=== PATIENT | female | born 1985 | race Caucasian/White ===

== ENCOUNTER 2016-10-08 10:14 | Emergency (ER) | payer MEDICAID ==
--- NOTE | 2016-10-08 10:47 | EDM.PDOC ---
ED HPI ENT - General Chief Complaint: ENT Problem Stated Complaint: THROAT PAIN Time Seen by Provider: 10/08/16 10:43 Source of Information: Reports: Patient History Limitations: Reports: No limitations - History of Present Illness INITIAL COMMENTS - FREE TEXT/NARRATIVE: 31-year-old female presents the ED with sore throat for the last 3 days. Note she was exposed to her daughter with positive strep about a week ago. Chills associated nonproductive cough. States it's very painful to swallow. Associated low-grade fever and some chills. Still has her tonsils. Symptom Onset Date: 10/05/16 Timing/Duration: Reports: Day(s):, Gradual onset Severity: moderate Location: Reports: throat Quality: Reports: Burning, Sharp, Stabbing Improves with: Reports: Medication (Motrin and Aleve have been helping.) Worsens with: Reports: Other (98) Associated Symptoms: Reports: cough (Coughing up), fever/chills, loss of appetite. 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) - Related Data Allergies/ADRs: Allergies Allergy/AdvReac Type Severity Reaction Status Date / Time No Known Allergies Allergy Verified 10/08/16 10:20 Home Meds: Home Meds Azithromycin [Zithromax] 250 mg PO DAILY #6 tablet 10/08/16 [Rx] oxyCODONE HCl/Acetaminophen [Percocet 5-325 mg Tablet] 1 - 2 each PO Q4H PRN # 20 tablet 10/08/16 [Rx] Past Medical History - Past Health History Medical/Surgical History: Denies Medical/Surgical History Cardiovascular History: Reports: Hypertension 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 Denies: Ear pain, Sinus problem, Vertigo Respiratory: Reports: Cough (Mostly of saliva.). Denies: Shortness of Breath, Wheezing, Pleuritic Chest Pain Cardiovascular: Reports: No symptoms Endocrine: Reports: no symptoms GI/Abdominal: Reports: No symptoms : Reports: no symptoms Musculoskeletal: Reports: no symptoms Skin: Reports: no symptoms Neurological: Reports: No Symptoms, Change in Speech Psychiatric: Reports: Other Hematologic/Lymphatic: Reports: no symptoms Immunologic: Reports: no symptoms ED EXAM, ENT - Physical Exam Exam: See Below Exam Limited By: No limitations General Appearance: alert, WD/WN, mild distress Ears: normal TMs Nose: normal inspection, normal mucousa Mouth/Throat: Pharyngeal erythema (Left greater than right.), Throat pain, Tonsillar erythema, Tonsillar swelling (Left greater than right.). No: Tongue swelling, Tonsillar exudates, Uvular deviation Head: atraumatic, normocephalic Neck: lymphadenopathy (L) (Mild), lymphadenopathy (R) (Mild) Respiratory/Chest: no respiratory distress, lungs clear, normal breath sounds, no accessory muscle use Cardiovascular: normal peripheral pulses, regular rate, rhythm, no edema, no gallop, no murmur GI/Abdominal: normal bowel sounds, soft, non tender, no organomegaly, no distention Skin: Warm, Dry, Intact, Normal color, No rash Course - Vital Signs Last Recorded V/S: Last Vital Signs Temp 36.5 C 10/08/16 10:21 Pulse 77 10/08/16 10:21 Resp 16 10/08/16 10:21 BP 148/93 H 10/08/16 10:21 Pulse Ox 99 10/08/16 10:21 - Radiology Interpretation Free Text/Narrative:: 31-year-old female presents to the ED with acute sore throat. Started 3 days ago. Of note her daughter was diagnosed with positive strep coccal infection a week ago. Examination reveals enlarged tonsils and erythema particularly of the left more so than the right. The oropharynx is diffusely inflamed as well. She is mild bilateral submandibular adenopathy. Chest is clear postage percussion. Plan she'll be treated with Zithromax 2 tablets today then one tablet daily for another 4 days. Percocet tablets for pain relief one or 2 every 4-6 hours as needed. 16 tablets provided she will continue Motrin 600 mg every 6 hours to reduce pain and inflammation as well. Departure - Departure Time of Disposition: 10:43 Disposition: Home, Self-Care 01 Condition: fair Clinical Impression: Bronchitis Pharyngitis Qualifiers: Pharyngitis/tonsillitis etiology: streptococcus Qualified Code(s): J02.0 - Streptococcal pharyngitis Prescriptions: Azithromycin [Zithromax] 250 mg PO DAILY #6 tablet oxyCODONE HCl/Acetaminophen [Percocet 5-325 mg Tablet] 1 - 2 each PO Q4H PRN # 20 tablet PRN Reason: pain relief. Instructions: Acute Bronchitis, [id number], Pharyngitis, [id number] Referrals: Tiki Huff, DIABETES EDUCATOR [Primary Care Provider] - Forms: ED Department Discharge Additional Instructions: Evaluation in the emergency department today in regards to development of sore throat over the last 3 days with an associated cough. Exposed to Streptococcus failure daughter week ago. Examination shows that both tonsils are a little bit hypertrophic are enlarged left one is much redder than the right without any exudate or pus evident. Mild cervical adenopathy noted. Chest is clear chest to auscultation and percussion with a few transmitted sounds from the upper respiratory tract. Treatment is to be Zithromax tablets 2 tablets today then one tablet once daily for another 4 days. Percocet tablets 5-25 mg strength ideally one tablet every 4 hours as needed for pain relief and cough suppression. May use up to 2 tablets every 4 hours if needed. Expect improvement over the next 48-72 hours
== END 2016-10-08 10:54 | disposition home or self-care (01) ==
LOC: JD.ED 10:14
CPT/HCPCS: 99283

== ENCOUNTER 2016-11-16 12:46 | Emergency (ER) | payer MEDICAID ==
[2016-11-16] MEDS ORDERED: Sodium Chloride 0.9% 10 ML Syringe FLUSH PRN (13:31)
[2016-11-16] MEDS ORDERED: Ondansetron 4 MG/2 ML SDV IVPUSH ONE (13:32)
[2016-11-16] MEDS ORDERED: Acetaminophen/oxyCODONE 325-5 MG Tab PO ONE (13:32)
--- NOTE | 2016-11-16 14:18 | EDM.PDOC ---
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 Patient reports that the vaginal bleeding has been going on for 3 weeks. She has not been evaluated by any one for this. States that she contact her primary care providers it was unable to get in therefore she was told to go to the walk in but decided to come to the ER. She reports that she is changing a tampon every 2 hours and has been doing this for 3 weeks. Patient reports severe cramping on the right lower pelvis and rates it as a 7/10. She reports associated symptoms of diaphoresis, nausea, dizziness with movements. She denies any fevers, chills or vomiting. She denies any chance of . States she is not on any oral contraceptives. Reports that she has had ovarian cysts in the past. 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 Denies: fever, chills GI/Abdominal: Reports: Nausea. Denies: Abdominal pain, Vomiting : Reports: pain (right sided pelvic pain), other (vaginal bleeding x 3 weeks) . Denies: dysuria, hematuria Neurological: Reports: Dizziness, Headache ED EXAM, GENERAL - Physical Exam Exam: See Below Exam Limited By: No limitations General Appearance: alert, WD/WN, no apparent distress Respiratory/Chest: no respiratory distress, lungs clear, normal breath sounds Cardiovascular: normal peripheral pulses, regular rate, rhythm, no murmur GI/Abdominal: Soft, Non-Tender (Female) Exam: Normal external exam, Normal speculum exam, Vaginal bleeding. No: Cervical dilatation, Products of conception, Vaginal tears Neurological: alert, oriented, normal cognition Psychiatric: normal affect, normal mood Skin Exam: Warm, Dry, Normal color Course - Vital Signs Last Recorded V/S: Last Vital Signs Temp 36.5 C 11/16/16 16:44 Pulse 87 11/16/16 17:55 Resp 16 11/16/16 17:55 BP 128/74 11/16/16 17:55 Pulse Ox 98 11/16/16 17:55 Orthostatic Blood Pressure [ 118/84 Standing] Orthostatic Blood Pressure [ 127/82 Sitting] Orthostatic Blood Pressure [ 134/75 Supine] - Orders/Labs/Meds Orders: Active Orders 24 hr Category Date Time Status Orthostatic Vital Signs [RC] ASDIRECTED Care 11/16/16 13:32 Active Peripheral IV Care [RC] . DIRECTED Care 11/16/16 13:31 Active Peripheral IV Insertion Adult [OM.PC] Routine Oth 11/16/16 13:31 Ordered Labs: Laboratory Tests 11/16/16 11/16/16 11/16/16 Range/Units 13:35 13:35 13:40 WBC 5.58 (3.98-10.04) K/mm3 RBC 4.70 (3.98-5.22) M/mm3 Hgb 14.3 (11.2-15.7) gm/L Hct 41.5 (34.1-44.9) % MCV 88.3 (79.4-94.8) fl MCH 30.4 (25.6-32.2) pg MCHC 34.5 (32.2-35.5) g/dl RDW Std Deviation 41.0 (36.4-46.3) fL Plt Count 160 L (182-369) K/mm3 MPV 9.7 (9.4-12.3) fl Neut % (Auto) 59.7 (34.0-71.1) % Lymph % (Auto) 29.2 (19.3-51.7) % [place] % (Auto) 7.9 (4.7-12.5) % Eos % (Auto) 2.5 (0.7-5.8) Baso % (Auto) 0.5 (0.1-1.2) % Neut # (Auto) 3.33 (1.56-6.13) K/mm3 Lymph # (Auto) 1.63 (1.18-3.74) K/mm3 [place] # (Auto) 0.44 H (0.24-0.36) K/mm3 Eos # (Auto) 0.14 (0.04-0.36) K/mm3 Baso # (Auto) 0.03 (0.01-0.08) K/mm3 Sodium 139 (136-145) mEq/L Potassium 4.1 (3.5-5.1) mEq/L Chloride 106 (98-107) mEq/L Carbon Dioxide 24 (21-32) mEq/L Anion Gap 13.1 (5-15) BUN 11 (7-18) mg/dL Creatinine 0.9 (0.55-1.02) mg/dL Est Cr Clr Drug Dosing TNP Estimated GFR (MDRD) > 60 (>60) mL/min BUN/Creatinine Ratio 12.2 L (14-18) Glucose 94 (74-106) mg/dL Calcium 9.1 (8.5-10.1) mg/dL Total Bilirubin 0.4 (0.2-1.0) mg/dL AST 64 H (15-37) U/L ALT 88 H (14-59) U/L Alkaline Phosphatase 97 (46-116) U/L C-Reactive Protein 0.3 (<1.0) mg/dL Total Protein 7.3 (6.4-8.2) g/dl Albumin 4.0 (3.4-5.0) g/dl Globulin 3.3 gm/dL Albumin/Globulin Ratio 1.2 (1-2) HCG, Quant < 1.0 mIU/mL Urine Color Yellow (Yellow) Urine Appearance Slt cloudy H (Clear) Urine pH 6.0 (5.0-8.0) Ur Specific [place] 1.025 (1.005-1.030) Urine Protein Negative (Negative) Urine Glucose (UA) Negative (Negative) Urine Ketones Negative (Negative) Urine Occult Blood Negative (Negative) Urine Nitrite Negative (Negative) Urine Bilirubin Negative (Negative) Urine Urobilinogen 0.2 (0.2-1.0) Ur Leukocyte Esterase Negative (Negative) Urine RBC 0-5 (0-5) /hpf Urine WBC 0-5 (0-5) /hpf Ur Epithelial Cells Not Reportable Ur Squamous Epith Cells 5-10 H (0-5) /hpf Urine Bacteria Few (FEW) /hpf Urine Mucus Few (FEW) /hpf Meds: Medications Discontinued Medications Generic Name Dose Route Start Last Admin Trade Name Freq PRN Reason Stop Dose Admin Ketorolac Tromethamine 30 mg 11/16/16 16:32 11/16/16 16:42 Toradol IVPUSH 11/16/16 16:33 30 mg ONETIME ONE Administration Ondansetron HCl 4 mg 11/16/16 13:32 11/16/16 13:53 Zofran IVPUSH 11/16/16 13:33 4 mg ONETIME ONE Administration Oxycodone/Acetaminophen 1 tab 11/16/16 13:32 11/16/16 13:54 Percocet 325-5 Mg PO 11/16/16 13:33 1 tab ONETIME ONE Administration Sodium Chloride 10 ml 11/16/16 13:31 11/16/16 13:54 Saline Flush FLUSH 10 ml ASDIRECTED PRN Administration Keep Vein Open - Radiology Interpretation Free Text/Narrative:: Ultrasound transvaginal impression per Dr. Smith: 1. Possible mild hydrosalpinx on the right side. 2. Nonvisualized left ovary. 3. Minimal free fluid felt to be incidental 4. Incidental nabothian cyst. CT Results Date: 11/17/16 - Re-Assessments/Exams Free Text/Narrative Re-Assessment/Exam: 11/16/16 13:31 Patient is requesting something for pain. Percocet ordered. 11/16/16 16:44 Labs returned. With blood cell count is 5.5 the hemoglobin is normal at 14.3 and platelets are 160. An hCG is negative at less than 1.0. CRP appears within normal limits at 0.3. Sodium is 139, potassium is 4.1 chloride is 106. Creatinine 0.9. BUN is 11. AST is mildly elevated at 64, ALT is mildly elevated and alkaline phosphatase is 90. I reviewed the lab results with patient. Patient reports pain is returning. Toradol IV ordered. Vaginal exam completed. Based on the patient's labs and the vaginal exam I question how accurately she is reporting and the vaginal bleeding. Patient reports that she was changing her tampon twice an hour for the last 3 weeks. Vaginal exam showed only a small amount of blood in the vagina. We are awaiting her ultrasound report. 11/16/16 17:45 I reviewed the ultrasound results with the patient. She denies any history of PID. She denies any chance of any STDs. Reports has been with the same partner for the last 7 or 8 years. We discussed OCPs. She is not want to go on any OCPs at this time for fear of weight gain. I will have her follow up with OB this week. Discharge instructions as documented. Departure - Departure Time of Disposition: 17:44 Disposition: Home, Self-Care 01 Condition: fair Clinical Impression: Dysfunctional uterine bleeding - Discharge Information Prescriptions: Acetaminophen/HYDROcodone [[place] 325-5 MG] 1 tab PO Q4H PRN #12 tablet PRN Reason: Pain Ondansetron [Zofran ODT] 4 mg PO Q8H #12 tab.dis Instructions: Dysfunctional Uterine Bleeding Referrals: Tiki Huff NP [Primary Care Provider] - María Lambert MD [Physician] - Forms: ED Department Discharge Additional Instructions: you were given medication in the ER that can affect your ability to drive operate machinery. No driving or operating machinery within 12 hours of taking the prescription narcotic pain medication. Take [id number] ibuprofen 600 mg every 6 hours for pain. may take one [place] every 4-6 hours as needed for severe pain. No driving operating machinery within 12 hours of taking the [place]. [place] can be habit-forming, I recommend you take as few of these as needed to control your pain. Rest and drink plenty of fluids. Take the Zofran one tablet sublingual every 8 hours as needed for nausea. Follow up with OB this week. Call [phone] Lambert. Please return to the ER should your symptoms change or worsen. - My Orders Last 24 Hours: My Active Orders 11/16/16 13:31 Peripheral IV Care [RC] . DIRECTED Peripheral IV Insertion Adult [OM.PC] Routine 11/16/16 13:32 Orthostatic Vital Signs [RC] ASDIRECTED - Assessment/Plan Last 24 Hours: My Active Orders 11/16/16 13:31 Peripheral IV Care [RC] . DIRECTED Peripheral IV Insertion Adult [OM.PC] Routine 11/16/16 13:32 Orthostatic Vital Signs [RC] ASDIRECTED
[2016-11-16] MEDS ORDERED: Ketorolac 30 MG/ML SDV IVPUSH ONE (16:32)
[2016-11-16 17:59] VITALS: BP 128/74
--- NOTE | 2016-11-17 07:03 | US ---
Pelvic ultrasound: Multiple real-time images were obtained transvaginally. Incidental nabothian cysts are seen. Uterus is anteverted. No myometrial abnormality is seen. Endometrial thickness is 5.8 cm. Left ovary is not visualized. Right ovary appears within normal limits. Possible mild hydrosalpinx is noted on the right side. Minimal free fluid within the pelvis is seen which is felt to be incidental. Measurements: Uterus: Length 7.3 cm, AP height 4.0 cm, transverse width 4.7 cm Right ovary: 3.2 x 2.8 x 2.0 cm Impression: 1. Possible mild hydrosalpinx on the right side. 2. Nonvisualized left ovary. 3. Minimal free fluid felt to be incidental. 4. Incidental nabothian cysts. Diagnostic code #3
== END 2016-11-16 17:55 | disposition home or self-care (01) ==
LOC: JD.ED 12:46
DX: N93.8 Other specified abnormal uterine and vaginal bleeding (principal); I10 Essential (primary) hypertension; F41.9 Anxiety disorder, unspecified; Z79.899 Other long term (current) drug therapy
CPT/HCPCS: 36415; 76830; 80053; 81001; 84702; 85025; 86140; 96374; 96375; 99284; A9270; J1885; J2405; J7050

== ENCOUNTER 2016-12-28 18:20 | Emergency (ER) | payer MEDICAID ==
[2016-12-28 18:31] VITALS: BP 157/112
[2016-12-28] MEDS ORDERED: Sodium Chloride 0.9% 10 ML Syringe FLUSH PRN (18:36)
[2016-12-28] MEDS ORDERED: HYDROmorphone 0.5 MG/0.5 ML Syringe IVPUSH ONE (18:36)
[2016-12-28] MEDS ORDERED: Diphtheria,Pertussis(Acell),Tetanus Vaccine 0.5 ML SDV inactive IM ONE (18:36)
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
--- NOTE | 2016-12-28 19:40 | CT ---
Head CT Technique: Multiple axial sections through the brain were obtained. Intravenous contrast was not utilized. Comparison: No previous intracranial imaging is available. Findings: Ventricles along with basal cisterns and sulci over the convexities are within normal limits for the patient's age. There is some beam hardening artifact which slightly diminishes details within the inferior frontal lobes. No other abnormal parenchymal densities are seen. No evidence of intracranial hemorrhage. No midline shift or mass effect is seen. Bone window settings were reviewed which shows the visualized sinuses to appear clear. No acute calvarial abnormality is seen. Impression: 1. Mild artifact as described above. No acute intracranial abnormality is identified on noncontrast head CT study. Diagnostic code #1
--- NOTE | 2016-12-29 07:49 | CR ---
Lumbar spine: AP, lateral and coned-down lateral views centered to the lumbosacral junction were obtained. Vertebral body heights and disc spaces are maintained. Pedicles as well as transverse and spinous processes are intact. Sacroiliac joints appear within normal limits. No acute fracture or other abnormality is seen. Surgical clips are seen from prior cholecystectomy. Impression: 1. No abnormality is seen on three-view lumbar spine study. Diagnostic code #1
--- NOTE | 2016-12-29 07:49 | CR ---
Left foot: Four views of the left foot were obtained. Comparison: No previous study. Plantar spur is seen. No fracture, dislocation or other bony abnormality is seen. Impression: 1. Plantar spur. 2. Left foot exam is otherwise unremarkable. Diagnostic code #2
--- NOTE | 2016-12-29 07:49 | CR ---
Right foot: Four views of the right foot were obtained. Comparison: No previous study. Plantar spur is seen. No fracture, dislocation or other bony abnormality is identified. Impression: 1. Plantar spur. Right foot exam is otherwise unremarkable. Diagnostic code #1
== END 2016-12-28 20:45 | disposition home or self-care (01) ==
LOC: JD.ED 18:20
DX: S50.811A Abrasion of right forearm, initial encounter (principal); I10 Essential (primary) hypertension; E03.9 Hypothyroidism, unspecified; Z79.899 Other long term (current) drug therapy; Z65.8 Other specified problems related to psychosocial circumstances; V89.2XXA Person injured in unspecified motor-vehicle accident, traffic, initial encounter
CPT/HCPCS: 36415; 70450; 72100; 73630; 80053; 85025; 96374; 99285; G0480; J1170; J7050; 90715; 99284

== ENCOUNTER 2017-03-05 10:28 | Emergency (ER) | payer MEDICAID ==
[2017-03-05 10:41] VITALS: BP 154/95
--- NOTE | 2017-03-05 11:51 | EDM.PDOC ---
ED HPI GENERAL MEDICAL PROBLEM - General Chief Complaint: Respiratory Problem Stated Complaint: COLD SX Time Seen by Provider: 03/05/17 11:34 Source of Information: Reports: Patient History Limitations: Reports: No Limitations - History of Present Illness INITIAL COMMENTS - FREE TEXT/NARRATIVE: Patient is a 31-year-old female presents ED complaining of cough and sore throat. States approximately one week ago developed cold-like symptoms including : sneezing, body aches, headache, and runny nose. Over the past 2 days she developed a sore throat with a cough. States the sore throat has gradually increased since yesterday. Cough has kept her up at night. She states with laying flat she gets a tickle in her throat thus causing her to cough. She did not sleep well last night. States son recently had cold like symptoms. Patient has been mildly nauseated with no vomiting. There has been no documented fever, nor does she complain of shortness of breath, chest pain, rash, ear pain, or any additional complaints. States yesterday she went to the walk-in clinic and requested antibiotic to which she received amoxicillin. Patient has no past medical history and currently taking no prescription medications. She has tried multiple [id number] medications. 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 , Other (See Below) Other OB/BYN History: irregular periods, misscarriage x 2 Psychiatric History: Reports: Anxiety Endocrine/Metabolic History: Reports: Hypothyroidism Social & Family History - Family History Family Medical History: Noncontributory Oncologic: Reports: Bone - Tobacco Use Smoking Status *Q: Never Smoker Second Hand Smoke Exposure: No - Caffeine Use Caffeine Use: Reports: Soda - Alcohol Use Days Per Week of Alcohol Use: 0 - Recreational Drug Use Recreational Drug Use: No - Living Situation & Occupation Occupation: Employed ED ROS GENERAL - Review of Systems Review Of Systems: ROS reveals no pertinent complaints other than HPI. ED EXAM, GENERAL - Physical Exam Exam: See Below Exam Limited By: No Limitations General Appearance: Alert, WD/WN, No Apparent Distress Ears: Normal External Exam, Normal Canal, Hearing Grossly Normal, Normal TMs Nose: Normal Inspection, Normal Mucosa, No Blood Throat/Mouth: Normal Voice, No Airway Compromise, Other (Pain swelling to the tonsils with mild redness. No exudates no uvula deviation) Neck: Normal Inspection, Supple, Non-Tender, Other (No sinus tenderness noted.) . No: Lymphadenopathy (L), Lymphadenopathy (R) Respiratory/Chest: No Respiratory Distress, Lungs Clear, Normal Breath Sounds, No Accessory Muscle Use, Chest Non-Tender Cardiovascular: Normal Peripheral Pulses, Regular Rate, Rhythm Peripheral Pulses: 2+: Radial (R) Extremities: Normal Inspection Neurological: Alert, Oriented, CN II-XII Intact, Normal Cognition, No Motor/ Sensory Deficits Psychiatric: Normal Affect, Normal Mood Skin Exam: Warm, Dry, Intact, Normal Color, No Rash Course - Vital Signs Last Recorded V/S: Last Vital Signs Temp 97.3 F 03/05/17 10:38 Pulse 83 03/05/17 10:38 Resp 16 03/05/17 10:38 BP 154/95 H 03/05/17 10:38 Pulse Ox 95 03/05/17 10:38 - Re-Assessments/Exams Free Text/Narrative Re-Assessment/Exam: Strep screen was ordered. Strep screens positive. Patient's already on amoxicillin 500 mg twice a day for 7 days. She just started this treatment yesterday. She is requesting something for the cough at night. She refuses Teshaileon Carly. Will provide a prescription for Phenergan with codeine. Discharge instructions as documented. Departure - Departure Time of Disposition: 12:43 Disposition: Home, Self-Care 01 Condition: Good Clinical Impression: Strep throat - Discharge Information Prescriptions: Codeine/Promethazine [Phenergan with Codeine] 10 ml PO ASDIRECTED PRN #50 ml PRN Reason: Cough Instructions: Strep Throat, [id number] Referrals: Tiki Huff, MANAGER IT SECURITY [Primary Care Provider] - Forms: ED Department Discharge Additional Instructions: Strep screen was positive. Continue on amoxicillin treatment as prescribed. Follow-up with PCP at the conclusion of therapy to ensure resolution. For cough take 10 mils of promethazine with codeine at night. No driving while taking this medication. Utilize Tylenol and ibuprofen in alternating fashion for pain. Push the fluids. Ensure adequate rest. Antibiotic requires 24-48 hours to take effect thus symptoms may worsen over the next 24 hours but should improve thereafter. Return to ED for any new or worsening symptoms.
== END 2017-03-05 12:50 | disposition home or self-care (01) ==
LOC: JD.ED 10:28
DX: J02.0 Streptococcal pharyngitis (principal); I10 Essential (primary) hypertension; E03.9 Hypothyroidism, unspecified
CPT/HCPCS: 87430; 99283